=== PATIENT | male | born 1985 | race Caucasian/White ===

== ENCOUNTER 2017-09-20 16:58 | Emergency (ER) | payer BC ==
[~2017-09-20] VITALS: Ht 180.3 cm; Wt 86.6 kg
[2017-09-20 17:20] VITALS: Ht 180.3 cm; Wt 86.6 kg
[2017-09-20 18:14] LABS: BASOPHIL % 0.3 % (0-2); PLATELET COUNT 137 x10^3mcL (130-400); RED CELL DISTRIBUTION WIDTH 12.6 % (11.5-14.5)
[2017-09-20 18:25] LABS: CHLORIDE SERUM 103 mmol/L (98-107); CREATININE SERUM 0.9 mg/dL (0.7-1.3); GFR1 > 60 mL/min; GLUCOSE SERUM 103 mg/dL (74-106); SODIUM SERUM 140 mmol/L (136-145)
[2017-09-20 18:29] LABS: ALBUMIN 4.5 g/dL (3.4-5.0); ALKALINE PHOSPHATASE 80 U/L (46-116); ALT/SGPT 50 U/L (16-63); AST/SGOT 26 U/L (15-37); LIPASE 104 IU/L (73-393)
[2017-09-20 18:30] LABS: TOTAL PROTEIN, SERUM 8.5 g/dL (6.4-8.2)
[2017-09-20 19:36] VITALS: BP 124/86
== END 2017-09-20 19:36 | disposition home or self-care (01) ==
LOC: ED 16:58
PROVIDERS: Emergency Medicine
DX: K80.50 Calculus of bile duct without cholangitis or cholecystitis without obstruction (principal); K21.9 Gastro-esophageal reflux disease without esophagitis; Z88.8 Allergy status to other drugs, medicaments and biological substances
CPT/HCPCS: 36415; J1885; Q0092